=== PATIENT | male | born 1960 ===

== ENCOUNTER → 2019-03-03 | Outpatient (CLI) | payer BC, OTHER ==
[~2019-03-03] MED LIST: ALBU8.5H IH; ASPI-1471 PO; ATOR40TA69 PO; CHOL200038 PO; CROM10DR8 OP; DIPH0.5S2 IM; FLU60VIA41 IM; FLUT16SP20 NS; FLUT9.9S; KRIL1CAP16 PO; LISI-362 PO; LISI20TA29 PO; METH-318 PO; METH-543 PO; METH36TA2 PO; METH4TAB66 PO; MUPI15CR10 TP; PRED20TA6 PO; SERT-181 PO; SIMV-49 PO; School Note; VARI50KI IM; [UNRECOGNIZED DRUG - SUPPLY]
--- NOTE | 2019-03-03 10:58 | RADIOLOGY IMAGING REPORT ---
FACILITY: [facility] PATIENT NAME: Satnam Cordova : 1960 MR: [id number] V: [id number] EXAM DATE: ORDERING PHYSICIAN: JULIA JAIN TECHNOLOGIST: Location: [facility] Patient: Satnam Cordova : 1960 Visit/Account:[id number] Date of Sevice: 03/03/2019 LIVER HISTORY: elevated liver enzymes COMPARISON: None. FINDINGS: Gallbladder: Negative.. Bile ducts: There is no biliary ductal dilation with the CBD measuring 3-4 mm. Liver: Mildly enlarged measuring 18.9 cm in length. Mildly coarsened hepatic echotexture. Pancreas: Negative. Right kidney: Negative. Upper abdominal aorta and IVC: Patent. Ascites: None visualized. Other findings: None significant IMPRESSION: 1. Mild hepatomegaly with coarsened echotexture likely from underlying steatosis. 2. Normal gallbladder and bile ducts. Report Dictated By: Neil Larson MD at 03/03/2019 10:52 AM Report E-Signed By: Neil Larson MD at 03/03/2019 10:53 AM WSN:[id number]
== END ==
LOC: US 01:34
PROVIDERS: ATTEND Nurse Practitioner Family
DX: R16.0 Hepatomegaly, not elsewhere classified (principal)
CPT/HCPCS: 76705